=== PATIENT | male | born 1990 | race Caucasian/White ===

== ENCOUNTER → 2023-10-28 13:24 | Outpatient (REF) | payer OTHER, SELFPAY | LOC: RCS 13:24 | PROVIDERS: ATTENDING PHYSICIAN Physician Assistant Medical | DX: Q67.6 Pectus excavatum (principal) | CPT/HCPCS: 93306 ==

== ENCOUNTER → 2024-04-13 09:54 | Outpatient (REF) | payer OTHER, SELFPAY | LOC: MRI 3T 09:54 | PROVIDERS: ATTENDING PHYSICIAN Specialist; FAMILY PHYSICIAN Physician Assistant Medical | DX: R36.1 Hematospermia (principal) | CPT/HCPCS: 72197; A9575 ==